=== PATIENT | male | born 1955 | race African-American/Black ===

== ENCOUNTER 2017-07-16 16:21 | Emergency (ER) | payer OTHER, SELFPAY ==
[2017-07-16 17:27] LABS: Absolute Lymphocytes (CBC) 0.9 K/uL (0.7-4.9); Absolute Monocytes 0.6 K/uL (0.1-1.3); Absolute Neutrophil 6.7 K/uL (1.8-8.0); Basophils % 0.8 % (0-1.3); Eosinophils % 0.4 % (0-4.4); Hematocrit 41.3 % (39.6-49.0); Lymphocytes % 11.3 % (15.3-44.8); MCH 34.2 pg (27.0-35.0); MCV 102.7 fL (80-100); MPV 9.1 fL (7.6-11.3); Monocytes % 6.8 % (3.3-12.3); RBC Red Blood Cell Count 4.02 M/uL (4.33-5.43)
[2017-07-16 17:40] LABS: Glomerular Filtration Rate > 60 mL/min (>60)
[2017-07-16] MEDS ORDERED: MORPHINE 4 MG/ML SYR ONE (17:40)
[2017-07-16] MEDS ORDERED: NA CHLORIDE 0.9% 1,000 ML ONE (17:40)
[2017-07-16] MEDS ORDERED: ONDANSETRON 4 MG/2 ML VIAL ONE (17:40)
[2017-07-16 17:41] LABS: Glucose Level 95 mg/dL (65-120); Lipase 12 U/L (22-51)
[2017-07-16 17:47] LABS: ALT/SGPT 49 IU/L (10-60); AST/SGOT 115 IU/L (10-42); Albumin 3.5 g/dL (3.2-5.5); Alkaline Phosphatase 130 IU/L (42-121); BUN Blood Urea Nitrogen 6 mg/dL (6-20); Bilirubin Direct 1.7 mg/dL (0-0.2); Bilirubin Total 4.3 mg/dL (0.3-1.2); Glomerular Filtration Rate > 90 mL/min (=/>90); Protein, Total 7.6 g/dL (6.0-8.3)
[2017-07-16 17:52] LABS: Bicarbonate 25 mEq/L (21-31); Sodium Level 137 mEq/L (135-145)
--- NOTE | 2017-07-16 18:23 | RAD REPORT ---
EXAM DESCRIPTION: CT - Abdomen Pelvis W Contrast - 07/16/2017 6:06 pm CLINICAL HISTORY: Upper abdominal pain for 2 weeks COMPARISON: None. TECHNIQUE: Biphasic, helical CT imaging of the abdomen and pelvis was performed following 100 ml non -ionic IV contrast. Oral contrast was given. All CT scans are performed using dose optimization technique as appropriate and may include automated exposure control or mA/KV adjustment according to patient size. FINDINGS: No suspicious findings in the lung bases. No pericardial thickening or effusion. Liver shows a diffuse fatty infiltration pattern with no focal liver lesion. No hepatomegaly. No sple nomegaly or focal splenic finding. Sludge is seen layering in the gallbladder. No wall thickening or edema. No biliary tree dilatation. Active gallbladder process is unlikely. No solid mass of the pancreas identifiable. No acute pancreatitis findings. There are numerous coarse calcifications throughout the pancreatic parenchyma most likely reflecting chronic pancreatitis. Martin creatic duct is dilated. Cystic masses of the pancreas are not confirmed. Symmetric renal function is seen with no hydronephrosis or suspicious renal mass. No pyelonephritis o r acute renal parenchymal process. Contracted urinary bladder shows no suspicious finding. Stomach is not dilated. Barnard of the antrum are thickened and edematous. No duodenal bulb or C-loop a cute finding. Small bowel loops are nondilated. A few fluid-filled small bowel loops are present. No acute colon finding suspected. No free air, free fluid or pneumatosis. No hernia, mass or bulky lymphadenopathy. No adrenal abnor mality. Prominent disc and bony degenerative changes are present. IMPRESSION: Barnard of the gastric antrum appear thickened and edematous. While this is potentially a peristalsis artifact, finding is concerning for gastritis/antritis pattern. Gastric ulceration in thi s region is possible. Chronic pancreatitis findings are evident with dilated pancreatic duct. Acute pancreatitis is not deborah pected. Diffuse fatty infiltration of the liver. Layering sludge in the gallbladder. Active gallbladder process is not suspected.
[2017-07-16] MEDS ORDERED: LIDOCAINE VISCOUS 2% SOLN 15 ML UDC ONE (19:12)
[2017-07-16] MEDS ORDERED: MAGNE/ALUM HYDROXD 30 ML UCUP ONE (19:12)
--- NOTE | 2017-07-16 21:08 | ER ---
Nurse's Notes [facility] Name: Fransisco Khan Age: 62 yrs Sex: Male : 1955 Arrival Date: 07/16/2017 Time: 16:26 Bed 19 Private MD: Diagnosis: Vomiting;Diarrhea, unspecified;Gastritis, unspecified;Alcohol-induced chronic pancreatitis Presentation: 07/16 16:32 Presenting complaint: Patient states: Reports N/V/D with upper abdominal pain for 2 aj weeks. Transition of care: patient was not received from another setting of care. Onset of symptoms was July 01, 2017. Care prior to arrival: None. 16:32 Method Of Arrival: Ambulatory 16:32 Acuity: RADHA 3 aj Triage Assessment: 16:33 General: Appears in no apparent distress. comfortable, Behavior is calm, cooperative, aj appropriate for age. Pain: Complains of pain in epigastric area, right upper quadrant and left upper quadrant Pain currently is 9 out of 10 on a pain scale. Neuro: Level of Consciousness is awake, alert, obeys commands, Oriented to person, place, time, situation. Respiratory: Airway is patent Respiratory effort is even, unlabored, Respiratory pattern is regular, symmetrical. GI: Reports upper abdominal pain, epigastric pain, nausea, vomiting. Derm: Skin is intact, is healthy with good turgor, Skin is pink, warm \T\ dry. normal. Historical: - Allergies: 16:33 No Known Allergies; aj - Home Meds: 16:33 None [Active]; aj - PMHx: 16:33 None; aj - PSHx: 16:33 Knee surgery; back; Tonsillectomy; shoulder; aj - Immunization history:: Adult Immunizations unknown. - Social history:: Smoking status: Patient/guardian denies using tobacco. Screenin:36 Abuse screen: Denies threats or abuse. Denies injuries from another. Nutritional ph screening: No deficits noted. Tuberculosis screening: No symptoms or risk factors identified. Fall Risk None identified. Assessment: 17:15 General: Appears in no apparent distress. uncomfortable, slender, well groomed, ph Behavior is calm, cooperative, appropriate for age, Denies fever. Pain: Complains of pain in epigastric area, right upper quadrant and left upper quadrant. Neuro: Level of Consciousness is awake, alert, obeys commands, Oriented to person, place, time, situation. Cardiovascular: Capillary refill < 3 seconds Patient's skin is warm and dry. Respiratory: Airway is patent Respiratory effort is even, unlabored, Respiratory pattern is regular, symmetrical. GI: Abdomen is flat, non-distended, Bowel sounds present X 4 quads. Abd is soft X 4 quads Abdomen is tender to palpation in epigastric area, right upper quadrant and left upper quadrant Reports upper abdominal pain, diarrhea, epigastric pain, intolerance of fluids, nausea, vomiting. Derm: Skin is intact, Skin is pink, warm \T\ dry. Musculoskeletal: Circulation, motion, and sensation intact. Range of motion: intact in all extremities. 18:22 Reassessment: Patient appears in no apparent distress at this time. Patient and/or ph family updated on plan of care and expected duration. Pain level reassessed. Patient is alert, oriented x 3, equal unlabored respirations, skin warm/dry/pink. Pt reports that nausea has improved and pain has decreased to 6/10, resting quietly at this time, awaiting lab and CT results. 19:00 Reassessment: RECD REPORT FROM BRIANDA NORTON. 62YO BM P/W ABD PAIN AND N/V/D, H/O bp PANCREATITIS. ALL CURRENT ORDERS COMPLETED, NO ACUTE FINDINGS PER REPORT. DISPO PENDING. 21:36 Reassessment: PT D/C HOME AMBULATORY WITH FAMILY, DX WITH GASTRITIS AND CHRONIC bp PANCREATITIS. Vital Signs: 16:33 BP 155 / 103; Pulse 111; Resp 21; Temp 98.8; Pulse Ox 100% on R/A; Weight 63.5 kg; aj Height 5 ft. 11 in. (180.34 cm); Pain 9/10; 17:37 BP 134 / 89; Pulse 75; Resp 18; Pulse Ox 98% on R/A; Pain 9/10; ph 18:26 BP 148 / 98; Pulse 70; Resp 18; Pulse Ox 99% on R/A; Pain 6/10; ph 19:00 BP 164 / 98; Pulse 65; Resp 16; Pulse Ox 99% ; bp 20:00 BP 148 / 88; Pulse 66; Resp 16; Pulse Ox 100% ; bp 16:33 Body Mass Index 19.53 (63.50 kg, 180.34 cm) ED Course: 16:26 Patient arrived in ED. rg4 16:33 Triage completed. aj 16:33 Arm band placed on left wrist. Patient placed in an exam room. aj 16:38 Brianda Fernandez, RN is Primary Nurse. ph 16:39 Sven Daniels NP [facility]. pm1 16:39 Kostas Vasquez MD is Attending Physician. pm1 17:00 Radiology exam delayed due to lab results not completed at this time. (BUN/Creatinine). sj 17:10 Inserted saline lock: 22 gauge in right forearm, using aseptic technique. Blood ph collected. 17:36 Patient has correct armband on for positive identification. Placed in gown. Bed in low ph position. Call light in reach. Side rails up X 1. Pulse ox on. NIBP on. Warm blanket given. 17:37 No provider procedures requiring assistance completed. ph 18:06 CT Abd/Pelvis - W/Contrast: IV contrast only In Process Unspecified. EDMS 19:37 Basic Metabolic Panel Sent. bp 21:13 Cesar Sullivan MD is Referral Physician. pm1 21:36 IV discontinued, intact, bleeding controlled, No redness/swelling at site. Pressure bp dressing applied. Administered Medications: 17:25 Drug: NS 0.9% 1000 ml Route: IV; Rate: 1000 ml; Site: right forearm; ph 18:25 Follow up: Response: No adverse reaction; IV Status: Completed infusion ph 17:25 Drug: morphine 4 mg Route: IVP; Site: right forearm; ph 18:24 Follow up: Response: No adverse reaction; Pain is decreased ph 17:25 Drug: Zofran 4 mg Route: IVP; Site: right forearm; ph 18:24 Follow up: Response: No adverse reaction; Nausea is decreased ph 18:56 Drug: GI Cocktail without - (Maalox Suspension 30 ml, Lidocaine Liquid 2 % 15 ph ml) Route: PO; 19:14 Follow up: Response: No adverse reaction ph 21:23 Drug: Pepcid 20 mg Route: IVP; Site: right forearm; bp 21:26 Follow up: Response: No adverse reaction bp 21:23 Drug: Potassium Effervescent Tablet 50 mEq Route: PO; bp 21:36 Follow up: Response: No adverse reaction bp Outcome: 21:08 Discharge ordered by . pm1 21:37 Discharged to home ambulatory, with family. bp 21:37 Condition: stable 21:37 Discharge instructions given to patient, family, Instructed on discharge instructions, follow up and referral plans. medication usage, Demonstrated understanding of instructions, follow-up care, medications, Prescriptions given X 3. 21:38 Patient left the ED. bp Signatures: Dispatcher [employer] EDAreli Pacheco RN RN Zoraida Duong Patricia, RN RN Sven Daniels NP [employer] BI DEVELOPER pm1 Ayanna Platt rg4 Gabino South RN RN bp Corrections: (The following items were deleted from the chart) 17:33 17:25 Zofran 4 mg IVP in right antecubital ph ph
--- NOTE | 2017-07-16 21:09 | EDPHYS ---
Physician Documentation [facility] Name: Fransisco Khan Age: 62 yrs Sex: Male : 1955 Arrival Date: 07/16/2017 Time: 16:26 Bed 19 Private MD: ED Physician Kostas Vasquez HPI: 07/16 17:15 This 62 yrs old Black Male presents to ER via Ambulatory with complaints of Abdominal pm1 Pain, Vomiting/Diarrhea. 17:15 The patient presents with abdominal pain in the upper abdomen. Onset: The pm1 symptoms/episode began/occurred 2 week(s) ago. The symptoms do not radiate. Associated signs and symptoms: Pertinent positives: nausea, vomiting, and diarrhea, Pertinent negatives: chest pain, dysuria, fever, palpitations, shortness of breath, vomiting blood. The symptoms are described as achy. Modifying factors: The symptoms are alleviated by nothing, the symptoms are aggravated by alcohol. Severity of pain: in the emergency department the pain is actually worse. The patient has experienced similar episodes in the past, multiple times. The patient has not recently seen a physician, and does not have an established primary care provider. Patient with a history of pancreatitis for about 5 years. Patient reports that he usually has pain like this goes away by itself. Patient's pain aggravated by alcohol. he continues to drink beer and hard liquor. Patient's last alcohol consumption on Saturday or Saturday. Historical: - Allergies: 16:33 No Known Allergies; aj - Home Meds: 16:33 None [Active]; aj - PMHx: 16:33 None; aj - PSHx: 16:33 Knee surgery; back; Tonsillectomy; shoulder; aj - Immunization history:: Adult Immunizations unknown. - Social history:: Smoking status: Patient/guardian denies using tobacco. ROS: 17:15 Constitutional: Negative for fever, chills, and weight loss, Eyes: Negative for injury, pm1 pain, redness, and discharge, ENT: Negative for injury, pain, and discharge, Neck: Negative for injury, pain, and swelling, Cardiovascular: Negative for chest pain, palpitations, and edema, Respiratory: Negative for shortness of breath, cough, wheezing, and pleuritic chest pain. 17:15 Back: Negative for injury and pain, : Negative for injury, bleeding, discharge, and swelling, MS/Extremity: Negative for injury and deformity, Skin: Negative for injury, rash, and discoloration, Neuro: Negative for headache, weakness, numbness, tingling, and seizure. 17:15 Abdomen/GI: Positive for abdominal pain, nausea, vomiting, and diarrhea. Exam: 17:15 Constitutional: This is a well developed, well nourished patient who is awake, alert, pm1 and in no acute distress. Head/Face: Normocephalic, atraumatic. Eyes: Pupils equal round and reactive to light, extra-ocular motions intact. Lids and lashes normal. Conjunctiva and sclera are non-icteric and not injected. Cornea within normal limits. Periorbital areas with no swelling, redness, or edema. ENT: Nares patent. No nasal discharge, no septal abnormalities noted. Tympanic membranes are normal and external auditory canals are clear. Oropharynx with no redness, swelling, or masses, exudates, or evidence of obstruction, uvula midline. Mucous membranes moist. Neck: Trachea midline, no thyromegaly or masses palpated, and no cervical lymphadenopathy. Supple, full range of motion without nuchal rigidity, or vertebral point tenderness. No Meningismus. Chest/axilla: Normal chest wall appearance and motion. Nontender with no deformity. No lesions are appreciated. Cardiovascular: Regular rate and rhythm with a normal S1 and S2. No gallops, murmurs, or rubs. Normal PMI, no JVD. No pulse deficits. Respiratory: Lungs have equal breath sounds bilaterally, clear to auscultation and percussion. No rales, rhonchi or wheezes noted. No increased work of breathing, no retractions or nasal flaring. 17:15 Back: No spinal tenderness. No costovertebral tenderness. Full range of motion. Skin: Warm, dry with normal turgor. Normal color with no rashes, no lesions, and no evidence of cellulitis. MS/ Extremity: Pulses equal, no cyanosis. Neurovascular intact. Full, normal range of motion. 17:15 Abdomen/GI: Inspection: abdomen appears normal, Bowel sounds: normal, Palpation: soft, mild abdominal tenderness, in the epigastric area. 17:15 Neuro: Orientation: is normal, Motor: is normal, moves all fours, strength is normal, strength is 5/5 in all extremities, Sensation: is normal, no obvious gross deficits. Vital Signs: 16:33 BP 155 / 103; Pulse 111; Resp 21; Temp 98.8; Pulse Ox 100% on R/A; Weight 63.5 kg; aj Height 5 ft. 11 in. (180.34 cm); Pain 9/10; 17:37 BP 134 / 89; Pulse 75; Resp 18; Pulse Ox 98% on R/A; Pain 9/10; ph 18:26 BP 148 / 98; Pulse 70; Resp 18; Pulse Ox 99% on R/A; Pain 6/10; ph 19:00 BP 164 / 98; Pulse 65; Resp 16; Pulse Ox 99% ; bp 20:00 BP 148 / 88; Pulse 66; Resp 16; Pulse Ox 100% ; bp 16:33 Body Mass Index 19.53 (63.50 kg, 180.34 cm) aj MDM: 16:40 Patient medically screened. pm1 17:18 Data reviewed: vital signs. Data interpreted: Pulse oximetry: on room air is 100 %. pm1 Interpretation: normal. 21:07 Counseling: I had a detailed discussion with the patient and/or guardian regarding: the pm1 historical points, exam findings, and any diagnostic results supporting the discharge/admit diagnosis, lab results, radiology results, the need for outpatient follow up, to return to the emergency department if symptoms worsen or persist or if there are any questions or concerns that arise at home. 07/16 16:57 Order name: Basic Metabolic Panel pm1 07/16 16:57 Order name: CBC with Diff; Complete Time: 18:22 pm1 07/16 16:57 Order name: Creatinine for Radiology; Complete Time: 18:22 pm1 07/16 16:57 Order name: Hepatic Function; Complete Time: 18:22 pm1 07/16 16:57 Order name: Lipase; Complete Time: 18:22 pm1 07/16 16:58 Order name: Basic Metabolic Panel; Complete Time: 18:22 EDMS 07/16 16:57 Order name: IV Saline Lock; Complete Time: 17:08 pm1 07/16 16:57 Order name: CT Abd/Pelvis - W/Contrast: IV contrast only; Complete Time: 18:38 pm1 07/16 16:57 Order name: Labs collected and sent; Complete Time: 17:08 pm1 Administered Medications: 17:25 Drug: NS 0.9% 1000 ml Route: IV; Rate: 1000 ml; Site: right forearm; ph 18:25 Follow up: Response: No adverse reaction; IV Status: Completed infusion ph 17:25 Drug: morphine 4 mg Route: IVP; Site: right forearm; ph 18:24 Follow up: Response: No adverse reaction; Pain is decreased ph 17:25 Drug: Zofran 4 mg Route: IVP; Site: right forearm; ph 18:24 Follow up: Response: No adverse reaction; Nausea is decreased ph 18:56 Drug: GI Cocktail without - (Maalox Suspension 30 ml, Lidocaine Liquid 2 % 15 ph ml) Route: PO; 19:14 Follow up: Response: No adverse reaction ph 21:23 Drug: Pepcid 20 mg Route: IVP; Site: right forearm; bp 21:26 Follow up: Response: No adverse reaction bp 21:23 Drug: Potassium Effervescent Tablet 50 mEq Route: PO; bp 21:36 Follow up: Response: No adverse reaction bp Disposition: 07/17 07:34 Co-signature as Attending Physician, Kostas Vasquez MD I agree with the assessment and cheng plan of care. Disposition: 07/16/17 21:08 Discharged to Home. Impression: Vomiting, Diarrhea, unspecified, Gastritis, unspecified, Alcohol-induced chronic pancreatitis. - Condition is Stable. - Discharge Instructions: Abdominal Pain, Adult, Food Choices to Help Relieve Diarrhea, Adult, Diarrhea, Gastritis, Adult, Nausea and Vomiting. - Prescriptions for Bentyl 20 mg Oral Tablet - take 1 tablet by ORAL route every 6 hours As needed; 20 tablet. Pepcid 20 mg Oral Tablet - take 1 tablet by ORAL route every 12 hours for 10 days; 20 tablet. Zofran 4 mg Oral Tablet - take 1 tablet by ORAL route every 8 hours As needed; 20 tablet. - Medication Reconciliation Form, Thank You Letter form. - Follow up: Emergency Department; When: As needed; Reason: Worsening of condition. Follow up: Private Physician; When: 2 - 3 days; Reason: Recheck today's complaints, Continuance of care, Re-evaluation by your physician. Follow up: Cesar Sullivan MD; When: 2 - 3 days; Reason: Recheck today's complaints, Continuance of care, Re-evaluation by your physician. - Problem is new. - Symptoms have improved. Signatures: Dispatcher [employer] Areli Warner, RN RN Kostas Reddy MD MD cha Hall, Patricia, RN RN ph Sven Daniels, DRIFT MINER DRIFT MINER pm1 Gabino South RN RN bp
[2017-07-16] MEDS ORDERED: FAMOTIDINE 20 MG/2 ML VIAL IV ONE (21:39)
[2017-07-16] MEDS ORDERED: POTASSIUM 25 MEQ EFFERV TAB ONE (21:39)
== END 2017-07-16 21:38 | disposition home or self-care (01) ==
LOC: ER 16:21
DX: K29.70 Gastritis, unspecified, without bleeding (principal); K86.0 Alcohol-induced chronic pancreatitis
CPT/HCPCS: 36415; 74177; 80048; 80076; 83690; 85025; 96361; 96374; 96375; 99284; J2405; J7030; Q9967